=== PATIENT | female | born 1940 | race Caucasian/White ===

== ENCOUNTER 2023-04-16 12:13 | Emergency (ER) | payer MEDICARE, SELFPAY ==
[2023-04-16 12:15] VITALS: BP 133/73
--- NOTE | 2023-04-16 12:27 | ED.GENMED ---
History of Present Illness
General
Chief Complaint: Headache
Time Seen by Provider: 04/16/23 12:27
Travel History
Have you had any contact with someone who has COVID-19?: No
Do you have any symptoms of coronavirus? Fever > 100 degrees, chills, cough, shortness of breath, sore throat, loss of taste or smell, muscle aches, or headache?: No
History of Present Illness
History of Present Illness:
HPI:
EXAM:
ED COURSE:
NUMBER AND COMPLEXITY OF PROBLEMS ADDRESSED AT THE ENCOUNTER
� Chronic conditions affecting care:
� Acute Exacerbation and/or Progression of Chronic Illness:
� Differential Diagnosis includes:
AMOUNT AND/OR COMPLEXITY OF DATA TO BE REVIEWED AND ANALYZED
� I performed an independent evaluation of and my interpretation is:
EKG:
CT:
X-rays:
Laboratory Studies:
Other:
� Review of other/old records:
� Clinical information was obtained by an independent historian:
� Prescriptions/Medications Considered but not given:
� Further testing considered but not performed:
RISK OF COMPLICATIONS AND/OR MORBIDITY OR MORTALITY OF PATIENT MANAGEMENT
� Social determinants of health affecting care:
� Discussion with other providers:
� Escalation of care including admission/observation vs risk of discharge considered:
Past History
Past History
ED Past Medical History: GERD, HTN, Hypercholesterolemia and Hypothyroidism
ED Past Surgical History: Appendectomy, Gynecological (hysterectomy), Orthopedic and Other (cosmetic)
Social History
Tobacco: Non-smoker
Alcohol: None
Drug: None
Course
Vital Signs
Initial and Last Documented VS:
Initial Vital Signs
Temp Pulse Resp BP Pulse Ox
97.8 F 74 16 133/73 98
04/16/23 12:15 04/16/23 12:15 04/16/23 12:15 04/16/23 12:15 04/16/23 12:15
Last Documented Vital Signs
Temp Pulse Resp BP Pulse Ox
97.8 F 74 16 133/73 98
04/16/23 12:15 04/16/23 12:15 04/16/23 12:15 04/16/23 12:15 04/16/23 12:15
ED Attending Note
-
Portions of this chart may have been created with voice recognition software.� Occasional wrong word or��sound alike� substitutions may have occurred due to the inherent limitations of voice recognition software.
Discharge Plan
Departure
Prescriptions:
No Action
amoxicillin-pot clavulanate 875-125 mg tablet
1 tab PO BID Qty: 14 0RF
Interventions
Interventions:
*ED COVID-19 Vaccine History Last Done: 04/16/23 12:15
--- NOTE | 2023-04-16 12:29 | ED.GENMED ---
History of Present Illness
General
Chief Complaint: Headache
Time Seen by Provider: 04/16/23 12:27
Travel History
Have you had any contact with someone who has COVID-19?: No
Do you have any symptoms of coronavirus? Fever > 100 degrees, chills, cough, shortness of breath, sore throat, loss of taste or smell, muscle aches, or headache?: No
History of Present Illness
History of Present Illness:
HPI: Patient presents with a headache over the past 1 week or so. She has had migraine type of headache in her youth and also had her last headache about 10 years ago. She does not get headaches more recently except for this past week. This is
associated with some vague dizziness and sensation that there is 'a cloud between my brain and my eyes'. She also describes the initial sensation in her eyes as a migraine type of aura that she has had in the past. PMD sent her in for further
evaluation. Some of her pain is in the bitemporal regions. She has no pain with chewing food. She tells me the symptoms today are nothing like she they were 1 month ago when she was here more for right wrist pain/arthritic changes.
EXAM:
GENERAL: Well appearing in no distress
HEENT: Moist oral mucosa
CARDIOVASCULAR: No murmurs, normal heart rate and rhythm, No chest wall tenderness
PULMONARY: No respiratory distress, breath sounds are clear and equal
ABDOMEN: Soft with no peritoneal signs, no tenderness
NEUROLOGIC: Excellent strength all extremities, no coordination deficits, she has normal finger-nose testing
PSYCHIATRIC: Appropriate mental status, normal insight and judgement
EXTREMITIES: Nontender, no edema, moves all extremities equally
SKIN: No rash, no lesions
ED COURSE:
12:35 PM: I initially evaluated
NUMBER AND COMPLEXITY OF PROBLEMS ADDRESSED AT THE ENCOUNTER
� Chronic conditions affecting care: Anxiety/depression, high blood pressure, hyperlipidemia, hypothyroidism
� Acute Exacerbation and/or Progression of Chronic Illness: This is an acute problem
� Differential Diagnosis includes: Migraine type of headache, giant cell arteritis, nonspecific headache, intracranial hemorrhage, intracranial mass
AMOUNT AND/OR COMPLEXITY OF DATA TO BE REVIEWED AND ANALYZED
� I performed an independent evaluation of and my interpretation is:
EKG:
CT: CT brain unremarkable
X-rays:
Laboratory Studies: Potassium low at 2.8, CBC unremarkable, cRP is slightly high at 11.8, TSH normal, sed rate 29
Other:
� Review of other/old records: The patient was seen here in the ER on 03/13/2023, at that time the patient had a normal CBC, potassium was little bit low at 3.2, urine culture was negative. She had a CAT scan at that time of the
abdomen pelvis that showed diverticular disease.
� Clinical information was obtained by an independent historian: I spoke to her friend at bedside
� Prescriptions/Medications Considered but not given:
� Further testing considered but not performed:
RISK OF COMPLICATIONS AND/OR MORBIDITY OR MORTALITY OF PATIENT MANAGEMENT
� Social determinants of health affecting care: Lives at home
� Discussion with other providers: At 1:30 PM, received a message from Dr. Mohamud that CAT scan of the brain shows no acute abnormality
� Escalation of care including admission/observation vs risk of discharge considered: Given patient's age, CAT scan of the brain was obtained which was unremarkable for anything acute, potassium was low at 2.8 and was given
high-dose oral potassium. The patient tells me she does take HCTZ and will discuss further use of this with her primary care doctor. Her sodium is low normal at 135. She does feel significantly proved on reassessment at 2:50 PM however sed rate
is slightly elevated. Therefore, contacted vascular surgery. Dr. He will see patient in follow-up as I have very low suspicion for temporal arteritis and patient states that she did have a biopsy about 3 years ago which was unremarkable.
Past History
Past History
ED Past Medical History: GERD, HTN, Hypercholesterolemia and Hypothyroidism
ED Past Surgical History: Appendectomy, Gynecological (hysterectomy), Orthopedic and Other (cosmetic)
Social History
Tobacco: Non-smoker
Alcohol: None
Drug: None
Phy Exam
Physical Exam
Physical Exam:
See HPI
Course
Orders/Labs/Results
Orders:
Orders
04/16/23 12:38
CT Head W/o Iv Contrast Urgent
Comment:
Reason For Exam: ongoing new DAVIS 1wk
04/16/23 12:39
0.9% Sodium Chloride 500 ml [Nss] 500 ml IV BOLUS
Diphenhydramine [Benadryl] 25 mg IV NOW STA
Ketorolac [Toradol] 15 mg IV NOW STA
Metoclopramide [Reglan] 10 mg IV NOW STA
04/16/23 12:53
Basic Metabolic Panel Urgent
CRP [C-Reactive Protein] Urgent
Complete Blood Count/With Diff Urgent
ESR [Erythrocyte Sed Rate] Urgent
Magnesium Urgent
TSH Reflex To Free T4 Urgent
04/16/23 13:30
Potassium Chloride [KCl] 60 meq PO NOW STA
Abnormal Lab Results
04/16/23
12:53
ESR 29 H mm/hour
(0-20)
Potassium 2.8 L mmol/L
(3.5-5.1)
C-Reactive Protein 11.80 H mg/L
(0.0-10.00)
04/16/23 12:53
04/16/23 12:53
Vital Signs
Initial and Last Documented VS:
Initial Vital Signs
Temp Pulse Resp BP Pulse Ox
97.8 F 74 16 133/73 98
04/16/23 12:15 04/16/23 12:15 04/16/23 12:15 04/16/23 12:15 04/16/23 12:15
Last Documented Vital Signs
Temp Pulse Resp BP Pulse Ox
97.8 F 74 16 133/73 98
04/16/23 12:15 04/16/23 12:15 04/16/23 12:15 04/16/23 12:15 04/16/23 12:15
*Critical Care Note
Total Time (30-74mins, 75-104mins- exclusive of procedures): Not Applicable
ED Attending Note
-
Portions of this chart may have been created with voice recognition software.� Occasional wrong word or��sound alike� substitutions may have occurred due to the inherent limitations of voice recognition software.
Discharge Plan
Departure
Patient Disposition: Home (Routine Discharge)
Date of Disposition: 04/16/23
Time of Disposition: 15:52
Patient with high blood pressure during this ER visit?: Yes
Discharge Problem:
Headache
Instructions: Hypokalemia (DC), Migraines (DC), Headache, Adult (DC), BLOOD PRESSURE
Prescriptions:
No Action
amoxicillin-pot clavulanate 875-125 mg tablet
1 tab PO BID Qty: 14 0RF
Referrals:
NONE,* [Family Provider] -
Activity Restrictions/Additional Instructions:
Your sed rate and CRP are slightly elevated. Giant cell arteritis is a possibility however I have relatively low suspicion especially if you have at a biopsy in the past. I recommend that you still follow-up with the vascular doctor, Dr. He for
his input and reevaluation. Return here if worse. We did give you medications to commonly help migraine (Reglan and Toradol). CAT scan of the brain and other basic blood work were normal except for low potassium. You could also try increasing
foods that are high in potassium such as bananas, potatoes, tomatoes and follow-up with PMD for reassessment and repeat blood work.
Interventions
Interventions:
*Risk Screen - Suicide Last Done: 04/16/23 13:22
*General Assessment Last Done: 04/16/23 13:22
*Neglect/Abuse Screening Last Done: 04/16/23 13:22
*ED COVID-19 Vaccine History Last Done: 04/16/23 12:15
ED- Neurological Assessment Last Done: 04/16/23 13:23
[2023-04-16] MEDS: BENADRYL 25 MG IV (12:44)
[2023-04-16] MEDS: TORADOL 15 MG IV (12:44)
[2023-04-16] MEDS: REGLAN 10 MG IV (12:44)
[2023-04-16] MEDS: NSS 500 IV (12:52)
[2023-04-16 13:03] LABS: % Basophils 0.5 % (0-2); % Eosinophils 2.5 % (0-6); % Immature Granulocytes 0.3 % (0-0.5); % Lymphocytes 36.6 % (20.5-51.1); % Monocytes 7.8 % (1.7-9.3); % Neutrophils 52.3 % (42.2-75.2); Absolute Eosinophils 0.2 10^3/uL (0-0.7); Absolute Lymphocytes 2.9 10^3/uL (1.2-3.4); Absolute Monocytes 0.6 10^3/uL (0.1-0.6); Absolute Neutrophils 4.1 10^3/uL (1.4-6.5); Hematocrit 40.7 % (37.0-47.0); Hemoglobin 14.1 g/dL (12.0-16.0); Mean Corp Hgb Conc. 34.6 g/dL (33.0-37.0); Mean Corpuscular Volume 89.5 fL (81.0-99.0); Nucleated Red Blood Cells % 0 %; Platelet Count 228 10^3/uL (130-400); Red Blood Cell Count 4.55 10^6/uL (4.20-5.40); Red Cell Dist. Width 12.4 % (11.5-14.5); White Blood Cell Count 7.9 10^3/uL (4.8-10.8)
[2023-04-16 13:23] LABS: Blood Urea Nitrogen 15 mg/dl (7-17); Calcium 9.2 mg/dl (8.4-10.2); Carbon Dioxide 27 mmol/L (22-30); Chloride 102 mmol/L (98-107); Glucose 87 mg/dl (70-99); Magnesium 1.7 mg/dl (1.6-2.3); Potassium 2.8 mmol/L (3.5-5.1); Sodium 135 mmol/L (135-145); eGFR > 60.00
[2023-04-16 13:52] LABS: TSH Reflex To Free T4 1.01 uIU/ml (0.47-4.68)
[2023-04-16 14:09] LABS: Erythrocyte Sed Rate 29 mm/hour (0-20)
[2023-04-16] MEDS: KCL 60 MEQ PO (14:25)
== END 2023-04-16 16:38 | disposition home or self-care (01) ==
LOC: EMR 12:13
PROVIDERS: EMERGENCY PHYSICIAN Emergency Medicine
DX: R51.9 Headache, unspecified (principal); R42 Dizziness and giddiness; F41.9 Anxiety disorder, unspecified; F32.A Depression, unspecified; E78.00 Pure hypercholesterolemia, unspecified; E03.9 Hypothyroidism, unspecified; I10 Essential (primary) hypertension; K21.9 Gastro-esophageal reflux disease without esophagitis; Z90.49 Acquired absence of other specified parts of digestive tract; Z90.710 Acquired absence of both cervix and uterus
CPT/HCPCS: 99284; 96374; 96375; 96361; 70450; 80048; 83735; 84443; 85025; 85652; 86140

== ENCOUNTER 2023-05-04 08:15 | Day surgery (SDC) | payer MEDICARE, SELFPAY ==
[2023-05-04] VITALS (9 sets, daily range): BP systolic 113–155; BP diastolic 57–90; BMI 28.1
[2023-05-04] MEDS: BACTROBAN NASAL 1 GRAM NASAL (08:54)
[2023-05-04] MEDS: PERIDEX 0.12% ORAL RINSE 15 ML PO (08:54)
[2023-05-04 09:28] LABS: Blood Urea Nitrogen 21 mg/dl (7-17); Calcium 8.9 mg/dl (8.4-10.2); Carbon Dioxide 26 mmol/L (22-30); Chloride 106 mmol/L (98-107); Estimated Creatinine Clearance 37 ml/min; Glucose 81 mg/dl (70-99); Potassium 3.7 mmol/L (3.5-5.1); Sodium 135 mmol/L (135-145); eGFR 56.25
--- NOTE | 2023-05-04 11:12 | W.SUR.PREOP ---
Pre-Operative Surgical Note
-
I have examined this patient prior to the performance of the scheduled procedure.
The patient's condition is unchanged from the time of the current History and
Physical and the patient is able to undergo the scheduled procedure.
[2023-05-04] MEDS: NSS 500 IV (12:50)
--- NOTE | 2023-05-04 14:37 | W.IMMPOSTOP ---
Surgical Immed Post Op Note
-
Primary Surgeon: Michael He III, MD
Assisting Surgeon: Patrick Osullivan MD
Pre-op Diagnosis: R/O Giant Cell Arteritis
Procedure Performed: Redo bilateral temporal artery biopsy
Anesthesia Type: Light Sedation
Specimen / Cultures: 2x 5cm segments of temporal artery
Estimated Blood Loss: 5cc
Complications: NA
Operative Findings:
Segments from both temporal arteries exceeding 5cm on both sides were excised without complication and send to pathology. Overlying subcutaneous tissue and skin were closed.
--- NOTE | 2023-05-04 15:21 | OR.RPT ---
Operative Report
Operative Report
Date of Operation: 05/04/2023
Pre Op Diagnosis:
1.) Bilateral headaches
2.) Elevated inflammatory markers
3.) Suspected temporal arteritis
Post Op Diagnosis:
1.) Bilateral headaches
2.) Elevated inflammatory markers
3.) Suspected temporal arteritis
Procedure: BILATERAL temporal artery biopsies
Surgeon: Michael He III, MD
Bilingual Sales Representative: Patrick Osullivan MD PGY-1
Anesthesia: Sedation/local
Complications: None
Estimated Blood Loss: Minimal
History and Indications for Procedure: 82-year-old female with symptom constellation concerning for temporal arteritis. We were asked to provide temporal artery biopsies.
Procedure in Detail: Briana Nolasco was correctly identified and placed supine on the operating table. After adequate induction of anesthesia the hair overlying the bilateral temporal regions was shaved. The temporal pulses were palpated
bilaterally and appropriate skin incisions were marked over the temporal pulses bilaterally. The bilateral temporal regions were then prepped and draped in the usual sterile fashion. The patient received preoperative antibiotics. A time out
procedure was performed with the nursing and anesthesia staff confirming the patient's identity as well as the nature and laterality of the procedure.
Bilateral temporal artery biopsies were performed one at a time in the same manner as follows: Local anesthesia was infiltrated into the skin and subcutaneous tissue at the skin lia. A skin incision was made over the temporal skin lia.
Electrocautery and sharp dissection were used to expose the temporal artery. After adequate length of temporal artery had been exposed within the wound bed the proximal and distal ends were ligated with silk ties and small metal clips. The
intervening artery segment was transected proximally and distally and removed. The artery segment was identified according to laterality and passed off to the back table to be labeled and sent to pathology. The wound was then closely inspected for
hemostasis which was achieved. The wound was irrigated with saline solution.
Each wound was closed in layers. Skin glue was applied to each incision bilaterally.
The patient tolerated the procedure well and was taken to the recovery room in good condition.
Signed:
Michael He III, MD
[facility]
[phone] (xymn)
== END 2023-05-04 14:10 | disposition home or self-care (01) ==
LOC: CATH 08:15
PROVIDERS: ATTENDING PHYSICIAN Surgery Vascular Surgery; FAMILY PHYSICIAN Nurse Practitioner; OTHER PHYSICIAN Internal Medicine Cardiovascular Disease
DX: R51.9 Headache, unspecified (principal); Z79.82 Long term (current) use of aspirin; I10 Essential (primary) hypertension; E78.00 Pure hypercholesterolemia, unspecified; K21.9 Gastro-esophageal reflux disease without esophagitis; Z87.891 Personal history of nicotine dependence; R79.82 Elevated C-reactive protein (CRP)
CPT/HCPCS: 37609; 88305; 80048; 88313

== ENCOUNTER → 2023-05-20 08:16 | Outpatient (REF) | payer MEDICARE, SELFPAY | LOC: MRI 08:16 | PROVIDERS: ATTENDING PHYSICIAN Specialist; FAMILY PHYSICIAN Nurse Practitioner | DX: R51.9 Headache, unspecified (principal); H53.8 Other visual disturbances | CPT/HCPCS: 70553; A9575 ==

== ENCOUNTER → 2023-06-26 09:31 | Outpatient (REF) | payer MEDICARE, SELFPAY | LOC: PAVMRI 09:31 | PROVIDERS: ATTENDING PHYSICIAN Specialist; FAMILY PHYSICIAN Nurse Practitioner | DX: I67.6 Nonpyogenic thrombosis of intracranial venous system (principal); R42 Dizziness and giddiness | CPT/HCPCS: 70546; A9585 ==

== ENCOUNTER 2023-07-23 19:26 | Emergency (ER) | payer MEDICARE, SELFPAY ==
[2023-07-23 19:32] VITALS: BP 172/91
[2023-07-23 20:01] LABS: % Basophils 0.2 % (0-2); % Eosinophils 0.4 % (0-6); % Immature Granulocytes 0.3 % (0-0.5); % Lymphocytes 10.4 % (20.5-51.1); % Monocytes 5.5 % (1.7-9.3); % Neutrophils 83.2 % (42.2-75.2); Absolute Eosinophils 0.1 10^3/uL (0-0.7); Absolute Lymphocytes 1.2 10^3/uL (1.2-3.4); Absolute Monocytes 0.6 10^3/uL (0.1-0.6); Absolute Neutrophils 9.6 10^3/uL (1.4-6.5); Hematocrit 40.1 % (37.0-47.0); Hemoglobin 13.4 g/dL (12.0-16.0); Mean Corp Hgb Conc. 33.4 g/dL (33.0-37.0); Mean Corpuscular Hgb 30.3 pg (27.0-31.0); Mean Corpuscular Volume 90.7 fL (81.0-99.0); Mean Platelet Volume 9.7 fL (7.4-10.4); Nucleated Red Blood Cells % 0 %; Platelet Count 206 10^3/uL (130-400); Red Blood Cell Count 4.42 10^6/uL (4.20-5.40); Red Cell Dist. Width 12.5 % (11.5-14.5); White Blood Cell Count 11.5 10^3/uL (4.8-10.8)
[2023-07-23 20:10] LABS: Lactic Acid 1.3 mmol/L (0.7-2.0)
[2023-07-23 20:11] LABS: ALT (SGPT) 14 U/L (0-35); AST (SGOT) 28 U/L (14-36); Albumin 4.2 g/dl (3.5-5.0); Alkaline Phosphatase 95 U/L (38-126); Blood Urea Nitrogen 12 mg/dl (7-17); Calcium 9.6 mg/dl (8.4-10.2); Carbon Dioxide 24 mmol/L (22-30); Chloride 105 mmol/L (98-107); Glucose 111 mg/dl (70-99); Potassium 3.8 mmol/L (3.5-5.1); Sodium 138 mmol/L (135-145); Total Bilirubin 0.5 mg/dl (0.2-1.3); Total Protein 6.9 g/dl (6.3-8.2); eGFR > 60.00
== END 2023-07-23 23:53 ==
LOC: EMR 19:26
PROVIDERS: Emergency Medicine
DX: R50.9 Fever, unspecified (principal); Z98.890 Other specified postprocedural states; Z53.21 Procedure and treatment not carried out due to patient leaving prior to being seen by health care provider
CPT/HCPCS: 99281; 80053; 83605; 85025; 87040

== ENCOUNTER → 2023-10-26 11:48 | Outpatient (REF) | payer MEDICARE, SELFPAY | LOC: HWRAD 11:48 | PROVIDERS: ATTENDING PHYSICIAN Nurse Practitioner | DX: R05.1 Acute cough (principal) | CPT/HCPCS: 71046 ==

== ENCOUNTER → 2023-12-11 12:26 | Outpatient (REF) | payer MEDICARE, SELFPAY ==
[2023-12-11 13:11] LABS: % Basophils 0.6 % (0-2); % Immature Granulocytes 0.1 % (0-0.5); % Lymphocytes 35.1 % (20.5-51.1); % Monocytes 7.8 % (1.7-9.3); % Neutrophils 54.4 % (42.2-75.2); Absolute Basophils 0.1 10^3/uL (0-0.2); Absolute Eosinophils 0.2 10^3/uL (0-0.7); Absolute Lymphocytes 2.8 10^3/uL (1.2-3.4); Absolute Monocytes 0.6 10^3/uL (0.1-0.6); Absolute Neutrophils 4.3 10^3/uL (1.4-6.5); Hemoglobin 13.8 g/dL (12.0-16.0); Mean Corp Hgb Conc. 33.7 g/dL (33.0-37.0); Mean Corpuscular Hgb 29.4 pg (27.0-31.0); Mean Corpuscular Volume 87.4 fL (81.0-99.0); Mean Platelet Volume 9.4 fL (7.4-10.4); Nucleated Red Blood Cells % 0 %; Platelet Count 260 10^3/uL (130-400); Red Blood Cell Count 4.69 10^6/uL (4.20-5.40); Red Cell Dist. Width 12.8 % (11.5-14.5); White Blood Cell Count 7.8 10^3/uL (4.8-10.8)
[2023-12-11 13:30] LABS: ALT (SGPT) 20 U/L (0-35); AST (SGOT) 26 U/L (14-36); Albumin 4.4 g/dl (3.5-5.0); Alkaline Phosphatase 103 U/L (38-126); Blood Urea Nitrogen 17 mg/dl (7-17); Calcium 9.7 mg/dl (8.4-10.2); Carbon Dioxide 25 mmol/L (22-30); Chloride 106 mmol/L (98-107); Glucose 85 mg/dl (70-99); Potassium 4.4 mmol/L (3.5-5.1); Sodium 144 mmol/L (135-145); Total Bilirubin 0.2 mg/dl (0.2-1.3); Total Protein 7.2 g/dl (6.3-8.2); eGFR > 60.00
== END ==
LOC: HWRAD 12:26
PROVIDERS: ATTENDING PHYSICIAN Physician Assistant Medical
DX: R10.32 Left lower quadrant pain (principal); Z11.52 Encounter for screening for COVID-19; R11.2 Nausea with vomiting, unspecified
CPT/HCPCS: 36415; 74178; 80053; 85025; Q9967

== ENCOUNTER → 2024-01-18 11:51 | Outpatient (REF) | payer MEDICARE, SELFPAY | LOC: RAD 11:51 | PROVIDERS: ATTENDING PHYSICIAN Internal Medicine; FAMILY PHYSICIAN Nurse Practitioner | DX: K59.00 Constipation, unspecified (principal); Z87.19 Personal history of other diseases of the digestive system | CPT/HCPCS: 74177; Q9967 ==

== ENCOUNTER 2024-01-24 16:32 | Emergency (ER) | payer MEDICARE, SELFPAY ==
[2024-01-24 16:33] VITALS: BP 125/92
--- NOTE | 2024-01-24 17:34 | ED.GENMED ---
History of Present Illness
General
Chief Complaint: Abdominal Pain
Source: patient
Exam Limitations: none
Time Seen by Provider: 01/24/24 17:07
Nursing documentation reviewed up to this point in time: agreed with
History of Present Illness
History of Present Illness:
83-year-old female past medical history of diverticulitis, GERD hypertension hyperlipidemia presenting to the emergency department with worsening left lower quadrant Mateo pain ongoing for 2 weeks but worsening over the past few days. Also
noticed nausea vomiting and subjective fever over the past day or so. She had previous CT scan a week ago that showed proctocolitis no specific treatment the porter baggage.
Past History
Past History
ED Past Medical History: GERD, HTN, Hypercholesterolemia and Hypothyroidism
ED Past Surgical History: Appendectomy, Gynecological (hysterectomy), Orthopedic and Other (cosmetic)
Social History
Tobacco: Non-smoker
Alcohol: None
Drug: None
Review of Systems
Review of Systems
Allergies reviewed?: Yes
All Other Systems: ROS reviewed and negative except as documented in HPI and ROS
Phy Exam
Physical Exam
Physical Exam:
GENERAL: Alert , in no apparent distress
EYE: pupils equal and reactive
NECK: Supple, no significant adenopathy.
ENT: o/p clr, mmm.
CARDIAC: Regular rate and rhythm .
LUNGS: Clear breath sounds bilaterally, no acute respiratory distress, no wheezes/rales/rhonchi
ABDOMEN: Discomfort throughout the lower abdomen to palpation maximal to the left lower quadrant soft benign upper abdomen
NEUROLOGICAL: Alert and oriented, no focal neuro deficits
SKIN: Warm and dry, skin intact.
MUSCULOSKELETAL: No edema, well perfused.
PSYCH: Normal and appropriate interaction.
Course
Orders/Labs/Results
Orders:
Orders
01/24/24 17:26
CT Abd/Pel (IV only)-DH only Urgent
Comment:
Reason For Exam: left sided abd pain
Urinalysis Reflex To Culture Urgent
Ketorolac [Toradol] 15 mg IV NOW STA
Ondansetron Injectable [Zofran] 4 mg IV NOW STA
01/24/24 17:40
CBC/With Diff [Complete Blood Count/With Diff] Urgent
CMP [Comprehensive Metabolic Panel] Urgent
01/24/24 19:08
Amoxicillin 875 mg/Clav 125 mg [Augmentin 875 mg/125 mg] 1 tablet PO NOW STA
Abnormal Lab Results
01/24/24
17:40
Absolute Monos (auto) 0.7 H 10^3/uL
(0.1-0.6)
01/24/24 17:40
01/24/24 17:40
Vital Signs
Initial and Last Documented VS:
Initial Vital Signs
Temp Pulse Resp BP Pulse Ox
98.0 F 64 18 125/92 96
01/24/24 16:33 01/24/24 16:33 01/24/24 16:33 01/24/24 16:33 01/24/24 16:33
Last Documented Vital Signs
Temp Pulse Resp BP Pulse Ox
98.0 F 64 18 125/92 96
01/24/24 16:33 01/24/24 16:33 01/24/24 16:33 01/24/24 16:33 01/24/24 16:33
MDM/Problems Addressed
MDM/Problems Addressed:
83-year-old female presenting to the emergency department today with concerns of ongoing worsening lower abdominal pain mainly to the left lower quadrant. Worsening over the past day or so with now associated nausea and an episode of vomiting.
Also had subjective fevers. Upon arrival vital signs are normal. Patient does have reproducible tenderness throughout the lower abdomen maximal to the left lower quadrant. CT scan showing diverticulitis. Patient stable for outpatient treatment
as there is no signs of complication. Return precautions given advised for close outpatient follow-up.
*Critical Care Note
Total Time (30-74mins, 75-104mins- exclusive of procedures): Not Applicable
ED Attending Note
-
Portions of this chart may have been created with voice recognition software.� Occasional wrong word or��sound alike� substitutions may have occurred due to the inherent limitations of voice recognition software.
Discharge Plan
Departure
Patient Disposition: Home (Routine Discharge)
Date of Disposition: 01/24/24
Time of Disposition: 19:09
Patient with high blood pressure during this ER visit?: No
Condition: Good
Covid-19: Not Applicable
Discharge Problem:
Diverticulitis
Instructions: Diverticulitis (DC)
Prescriptions:
New
amoxicillin-pot clavulanate 875-125 mg tablet
1 tab PO BID 7 Days Qty: 14 0RF
ibuprofen 600 mg tablet
600 mg PO Q8H PRN (Reason: Pain) Qty: 14 0RF
No Action
losartan 50 mg Tablet
50 mg PO DAILY
meloxicam 15 mg Tablet
15 mg PO DAILY PRN (Reason: arthritis)
famotidine 40 mg Tablet
40 mg PO DAILY PRN (Reason: acid)
prednisone 20 mg Tablet
60 mg PO DAILY
amlodipine 2.5 mg Tablet
2.5 mg PO DAILY
pantoprazole 40 mg Tablet,Delayed Release (Dr/Ec)
40 mg PO DAILY PRN (Reason: acid)
aspirin 81 mg Tablet
81 mg PO DAILY
coenzyme Q10 [CoQ-10] 100 mg Capsule
200 mg PO DAILY
rosuvastatin [Crestor] 20 mg Tablet
20 mg PO HS
cholecalciferol (vitamin D3) [Vitamin D3] 50 mcg (2,000 unit) Tablet
50 mcg PO DAILY
Vitamin B12 1,000 mcg tablet
1 tab PO DAILY
levothyroxine capsule
50 mcg PO DAILY
Rx Instructions:
patient can not remember dosage
Citalopram capsule
20 mg PO DAILY
Rx Instructions:
patient unsure of dosage
oxycodone 5 mg tablet
5 mg PO Q8H PRN (Reason: moderate pain) Qty: 5 0RF
Referrals:
Michael Gonzalez MD [Primary Care Provider] -
Activity Restrictions/Additional Instructions:
You came to the emergency department today with concerns of left lower quadrant abdominal pain. You are found to have sigmoid diverticulitis. Please take Augmentin twice daily for the next 7 days as well as ibuprofen 600 milligrams every 8 hours
to help with inflammation and discomfort. Please start with a liquid diet and progress this over the next few days as symptoms will hopefully be improving. He can follow-up closely with the primary care doctor. Return to the emergency department
for any worsening, new or concerning symptoms.
Interventions
Interventions:
*Risk Screen - Suicide Last Done: 01/24/24 16:33
*General Assessment Last Done: 01/24/24 17:36
*Neglect/Abuse Screening Last Done: 01/24/24 17:36
ED- Fall Risk Assessment Last Done: 01/24/24 17:36
*ED COVID-19 Vaccine History Last Done: 01/24/24 17:36
CD-Ekiigf-Alzudjyosr Assessment Last Done: 01/24/24 17:36
Discharge Date and Time
Print Language: ANGUILLAN
[2024-01-24 17:36] VITALS: BMI 29.5
[2024-01-24 17:37] VITALS: BP 152/76
[2024-01-24] MEDS: ZOFRAN 4 MG IV (17:38)
[2024-01-24] MEDS: TORADOL 15 MG IV (17:38)
[2024-01-24 17:53] LABS: % Basophils 0.4 % (0-2); % Eosinophils 0.9 % (0-6); % Immature Granulocytes 0.4 % (0-0.5); % Lymphocytes 35.2 % (20.5-51.1); % Monocytes 8.6 % (1.7-9.3); % Neutrophils 54.5 % (42.2-75.2); Absolute Eosinophils 0.1 10^3/uL (0-0.7); Absolute Lymphocytes 2.7 10^3/uL (1.2-3.4); Absolute Monocytes 0.7 10^3/uL (0.1-0.6); Absolute Neutrophils 4.1 10^3/uL (1.4-6.5); Hematocrit 39.9 % (37.0-47.0); Hemoglobin 13.8 g/dL (12.0-16.0); Mean Corp Hgb Conc. 34.6 g/dL (33.0-37.0); Mean Corpuscular Hgb 30.5 pg (27.0-31.0); Mean Corpuscular Volume 88.1 fL (81.0-99.0); Mean Platelet Volume 9.3 fL (7.4-10.4); Nucleated Red Blood Cells % 0 %; Platelet Count 222 10^3/uL (130-400); Red Blood Cell Count 4.53 10^6/uL (4.20-5.40); Red Cell Dist. Width 12.9 % (11.5-14.5); White Blood Cell Count 7.5 10^3/uL (4.8-10.8)
[2024-01-24 18:00] VITALS: BP 127/84
[2024-01-24 18:07] LABS: ALT (SGPT) 14 U/L (0-35); AST (SGOT) 23 U/L (14-36); Albumin 4.5 g/dl (3.5-5.0); Alkaline Phosphatase 108 U/L (38-126); Blood Urea Nitrogen 12 mg/dl (7-17); Calcium 9.6 mg/dl (8.4-10.2); Carbon Dioxide 22 mmol/L (22-30); Chloride 105 mmol/L (98-107); Estimated Creatinine Clearance 46 ml/min; Glucose 87 mg/dl (70-99); Potassium 3.9 mmol/L (3.5-5.1); Sodium 139 mmol/L (135-145); Total Bilirubin 0.6 mg/dl (0.2-1.3); Total Protein 7.2 g/dl (6.3-8.2); eGFR > 60.00
[2024-01-24 19:00] VITALS: BP 128/90
[2024-01-24] MEDS: AUGMENTIN 875 MG/125 MG 1 TABLET PO (19:16)
== END 2024-01-24 19:30 | disposition home or self-care (01) ==
LOC: EMR 16:32
PROVIDERS: Physician Assistant; EMERGENCY PHYSICIAN Emergency Medicine; FAMILY PHYSICIAN Nurse Practitioner; PRIMARYCARE PHYSICIAN Family Medicine
DX: K57.32 Diverticulitis of large intestine without perforation or abscess without bleeding (principal); E03.9 Hypothyroidism, unspecified; E78.00 Pure hypercholesterolemia, unspecified; I10 Essential (primary) hypertension; K21.9 Gastro-esophageal reflux disease without esophagitis; Z90.49 Acquired absence of other specified parts of digestive tract; Z90.710 Acquired absence of both cervix and uterus
CPT/HCPCS: 96374; 96375; 99284; 74177; 80053; 85025; Q9967

== ENCOUNTER 2024-01-26 13:09 | Emergency (ER) | payer MEDICARE, SELFPAY ==
[2024-01-26 13:18] VITALS: BP 125/71
--- NOTE | 2024-01-26 13:36 | ED.GENMED ---
History of Present Illness
<Denise Mello PA-C - Last Filed: 01/26/24 21:06>
General
Chief Complaint: Abdominal Pain
Source: patient
Exam Limitations: none
Time Seen by Provider: 01/26/24 13:34
Nursing documentation reviewed up to this point in time: agreed with
History of Present Illness
History of Present Illness:
83-year-old female with past medical history of diverticulitis, hypertension, hyperlipidemia presents to the emergency department today with concerns of left lower quadrant pain for the past 2 weeks. Patient was seen in our emergency department 2
days ago for this issue and had a CT scan done which showed mild diverticulitis. Patient was started on Augmentin and has had around 4 doses of this. She has been taking ibuprofen for pain but feels as her pain is gotten worse and now patient has
nausea, decreased appetite, and noted a low-grade fever rectally of 100. She denies flank pain dysuria, hematuria. Denies diarrhea. She follows with [facility]. She has past abdominal surgical history of appendectomy, hysterectomy,
pelvic sling.
Past History
<Denise Mello PA-C - Last Filed: 01/26/24 21:06>
Past History
ED Past Medical History: GERD, HTN, Hypercholesterolemia and Hypothyroidism
ED Past Surgical History: Appendectomy, Gynecological (hysterectomy), Orthopedic and Other (cosmetic)
Social History
Tobacco: Non-smoker
Alcohol: None
Drug: None
Review of Systems
<Denise Mello PA-C - Last Filed: 01/26/24 21:06>
Review of Systems
All Other Systems: ROS reviewed and negative except as documented in HPI and ROS
Phy Exam
<Denise Mello PA-C - Last Filed: 01/26/24 21:06>
Physical Exam
Physical Exam:
General: Patient is well appearing and in no acute distress; non-toxic
Skin: Warm and dry, no rashes or lesions
Head: Normocephalic, atraumatic
Eyes: Sclera non-icteric. EOMs intact. PERRLA.
Cardiac: Regular rate and rhythm
Peripheral Vascular: No lower extremity swelling or edema
Pulm: Normal respiratory effort, no wheezes, rales, or rhonchi
Abdomen: LLQ tenderness to palpation noted with guarding, no rebound tenderness, no palpable abdominal masses
Neuro: CN II-XII intact, no focal neurologic deficits.
Psychiatric: Appropriate mood and affect.
Course
<Denise Mello PA-C - Last Filed: 01/26/24 21:06>
Orders/Labs/Results
Orders:
Orders
01/26/24 13:54
CT Abd/pelvis W Iv Cont Urgent
Comment:
Reason For Exam: LLQ pain
01/26/24 13:58
Complete Blood Count/With Diff Urgent
Comprehensive Metabolic Panel Urgent
Lipase Urgent
01/26/24 14:14
Ketorolac [Toradol] 15 mg IV NOW STA
Ondansetron Injectable [Zofran] 4 mg IV NOW STA
Abnormal Lab Results
01/26/24
13:58
Carbon Dioxide 21 L mmol/L
(22-30)
01/26/24 13:58
01/26/24 13:58
Vital Signs
Initial and Last Documented VS:
Initial Vital Signs
Temp Pulse Resp BP Pulse Ox
97.6 F 66 16 125/71 95
01/26/24 13:18 01/26/24 13:18 01/26/24 13:18 01/26/24 13:18 01/26/24 13:18
Last Documented Vital Signs
Temp Pulse Resp BP Pulse Ox
97.6 F 64 17 124/74 98
01/26/24 13:18 01/26/24 17:45 01/26/24 17:45 01/26/24 17:45 01/26/24 17:45
<Savi Jimenes DO - Last Filed: 01/26/24 14:24>
Orders/Labs/Results
Orders:
Orders
01/26/24 13:54
CT Abd/pelvis W Iv Cont Urgent
Comment:
Reason For Exam: LLQ pain
01/26/24 13:58
Complete Blood Count/With Diff Urgent
Comprehensive Metabolic Panel Urgent
Lipase Urgent
01/26/24 14:14
Ketorolac [Toradol] 15 mg IV NOW STA
Ondansetron Injectable [Zofran] 4 mg IV NOW STA
Abnormal Lab Results
01/26/24
13:58
Carbon Dioxide 21 L mmol/L
(30)
01/26/24 13:58
01/26/24 13:58
Vital Signs
Initial and Last Documented VS:
Initial Vital Signs
Temp Pulse Resp BP Pulse Ox
97.6 F 66 16 125/71 95
01/26/24 13:18 01/26/24 13:18 01/26/24 13:18 01/26/24 13:18 01/26/24 13:18
Last Documented Vital Signs
Temp Pulse Resp BP Pulse Ox
97.6 F 64 17 124/74 98
01/26/24 13:18 01/26/24 17:45 01/26/24 17:45 01/26/24 17:45 01/26/24 17:45
<Denise Mello PA-C - Last Filed: 01/26/24 21:06>
MDM/Problems Addressed
Differential Diagnosis Includes:
ddx include worsening diverticulitis, intraabdominal abscess, perforated viscous, bowel obstruction
MDM/Problems Addressed:
83-year-old female with past medical history of diverticulitis, hypertension presents emergency department today with concerns of persistent left lower quadrant pain following her diagnosis of diverticulitis 2 days ago. Patient was started on
Augmentin and she has had around 4 doses of this. Patient notes that her symptoms have worsened, she now has nausea and decreased appetite as well as a low-grade fever of 100 F. Patient denies any dysuria or hematuria. Patient denies any flank
pain. Will send patient for CAT scan to assess for intra-abdominal abscess, or possible bowel perforation. Patient is afebrile here in the emergency department.
Reassessment, patient's pain has improved with Toradol. CAT scan reveals persistent mild stranding along the sigmoid colon likely secondary to persist did not mild sigmoid diverticulitis. But no evidence of intra-abdominal abscess or perforation.
Considering patient's persistent symptoms, did offer switching antibiotics to Cipro and Flagyl however patient is allergic to these. Patient prefers to remain on Augmentin, I think this is reasonable, did offer Percocets for better pain control.
Discussed return precautions. Patient stable for discharge.
Chronic conditions affecting care:
Hypertension, hyperlipidemia, diabetes, endometriosis
<Denise Mello PA-C - Last Filed: 01/26/24 21:06>
*Pulse Oximetry
Patient hypoxic: no
*Critical Care Note
Total Time (30-74mins, 75-104mins- exclusive of procedures): Not Applicable
Data Reviewed
Review of Other/Old Records Reveals: Records (Reviewed ER physician documentation from 01/24/2024, patient seen for diverticulitis, CT scan scan showed mild diverticulitis, patient sent home on amoxicillin.)
Source: patient and records
<Denise Mello PA-C - Last Filed: 01/26/24 21:06>
Patient Management
Escalation/DeEscalation of care consider admission/obs:
Admit not indicated, patient stable for discharge, case reviewed with my attending
ED Attending Note
<Denise Mello PA-C - Last Filed: 01/26/24 21:06>
-
Portions of this chart may have been created with voice recognition software.� Occasional wrong word or��sound alike� substitutions may have occurred due to the inherent limitations of voice recognition software.
<Savi Jimenes DO - Last Filed: 01/26/24 14:24>
ED Attending Note
Patient seen and examined by attending physician: Yes
I performed the substantive portion of visit, reviewed & personally made and approve the management plan that is documented in note by myself or TUTU.: Yes
I performed a history and physical exam of patient and discussed management with resident, I reviewed resident's note and agree with documented findings and plan of care.: Yes
ED Attending Note:
Patient seen and evaluated at bedside, 83-year-old female with prior history of diverticulitis presenting for worsening left lower quadrant abdominal pain. Patient reports pain for the past several days. Patient seen in the emergency department on
01/23, had CT imaging that showed mild sigmoid diverticulitis. Patient was started on Augmentin, however notes that her pain is worsening and is not having any improvement. Also notes that she had a low-grade fever prior to arrival. Reports
several episodes diverticulitis in the past, however never required admission. Patient remains to the left lower quadrant of the abdomen. She reports constipation. Vital signs on arrival are normal.
On exam, patient is resting comfortably, no acute distress. Overall reassuring examination of the abdomen, without significant distention, mild tenderness to the left lower quadrant without rebound or guarding. Lower suspicion for bowel
perforation, however given acute worsening of symptoms with known diverticulitis, cannot safely rule out developing abscess. For this reason plan for repeat CT imaging. Toradol administered for pain.
Discharge Plan
Departure
Patient Disposition: Home (Routine Discharge)
Date of Disposition: 01/26/24
Time of Disposition: 17:40
Patient with high blood pressure during this ER visit?: No
Condition: Good
Discharge Problem:
Diverticulitis
Instructions: Diverticulitis (DC), Abdominal Pain
Prescriptions:
New
oxycodone-acetaminophen [Percocet] 5-325 mg tablet
1 tab PO Q6HPRN PRN (Reason: pain) Qty: 8 0RF
No Action
losartan 50 mg Tablet
50 mg PO DAILY
meloxicam 15 mg Tablet
15 mg PO DAILY PRN (Reason: arthritis)
famotidine 40 mg Tablet
40 mg PO DAILY PRN (Reason: acid)
prednisone 20 mg Tablet
60 mg PO DAILY
amlodipine 2.5 mg Tablet
2.5 mg PO DAILY
pantoprazole 40 mg Tablet,Delayed Release (Dr/Ec)
40 mg PO DAILY PRN (Reason: acid)
aspirin 81 mg Tablet
81 mg PO DAILY
coenzyme Q10 [CoQ-10] 100 mg Capsule
200 mg PO DAILY
rosuvastatin [Crestor] 20 mg Tablet
20 mg PO HS
cholecalciferol (vitamin D3) [Vitamin D3] 50 mcg (2,000 unit) Tablet
50 mcg PO DAILY
Vitamin B12 1,000 mcg tablet
1 tab PO DAILY
levothyroxine capsule
50 mcg PO DAILY
Rx Instructions:
patient can not remember dosage
Citalopram capsule
20 mg PO DAILY
Rx Instructions:
patient unsure of dosage
oxycodone 5 mg tablet
5 mg PO Q8H PRN (Reason: moderate pain) Qty: 5 0RF
amoxicillin-pot clavulanate 875-125 mg tablet
1 tab PO BID 7 Days Qty: 14 0RF
ibuprofen 600 mg tablet
600 mg PO Q8H PRN (Reason: Pain) Qty: 14 0RF
Referrals:
Theresa Snider CRNP [Family Provider] -
Activity Restrictions/Additional Instructions:
Please finish your course of Augmentin.
Please follow-up with GI as scheduled next week.
Percocet has been sent to your pharmacy. You can take one tablet every 6 hours as needed for pain. You can alternate this with Ibuprofen.
Please return to emergency department should you develop any acute worsening of your symptoms, intractable nausea or vomiting, rectal bleeding, vomiting of blood, dark tarry stools, chest pain, shortness of breath, or any other worrisome signs or
symptoms to you.
Interventions
Interventions:
*Risk Screen - Suicide Last Done: 01/26/24 13:21
*Neglect/Abuse Screening Last Done: 01/26/24 13:21
*Nursing Disposition Last Done: 01/26/24 18:11
BD-Tojyxy-Lksobnbtxs Assessment Last Done: 01/26/24 14:25
Discharge Date and Time
Discharge Date/Time: 01/26/24 18:11
Print Language: SPANISH
[2024-01-26 14:12] LABS: % Basophils 0.6 % (0-2); % Eosinophils 1.9 % (0-6); % Immature Granulocytes 0.4 % (0-0.5); % Lymphocytes 28.3 % (20.5-51.1); % Monocytes 7.9 % (1.7-9.3); % Neutrophils 60.9 % (42.2-75.2); Absolute Eosinophils 0.1 10^3/uL (0-0.7); Absolute Lymphocytes 2.1 10^3/uL (1.2-3.4); Absolute Monocytes 0.6 10^3/uL (0.1-0.6); Absolute Neutrophils 4.4 10^3/uL (1.4-6.5); Hematocrit 39.9 % (37.0-47.0); Hemoglobin 13.6 g/dL (12.0-16.0); Mean Corp Hgb Conc. 34.1 g/dL (33.0-37.0); Mean Corpuscular Hgb 30.2 pg (27.0-31.0); Mean Corpuscular Volume 88.7 fL (81.0-99.0); Mean Platelet Volume 9.6 fL (7.4-10.4); Nucleated Red Blood Cells % 0 %; Platelet Count 236 10^3/uL (130-400); Red Cell Dist. Width 12.7 % (11.5-14.5); White Blood Cell Count 7.2 10^3/uL (4.8-10.8)
[2024-01-26 14:23] LABS: ALT (SGPT) 19 U/L (0-35); AST (SGOT) 30 U/L (14-36); Albumin 4.4 g/dl (3.5-5.0); Alkaline Phosphatase 114 U/L (38-126); Blood Urea Nitrogen 13 mg/dl (7-17); Calcium 9.7 mg/dl (8.4-10.2); Carbon Dioxide 21 mmol/L (22-30); Chloride 104 mmol/L (98-107); Glucose 86 mg/dl (70-99); Lipase 116 U/L (23-300); Potassium 4.3 mmol/L (3.5-5.1); Sodium 137 mmol/L (135-145); Total Bilirubin 0.7 mg/dl (0.2-1.3); Total Protein 7.2 g/dl (6.3-8.2); eGFR > 60.00
[2024-01-26] MEDS: TORADOL 15 MG IV (14:27)
[2024-01-26] MEDS: ZOFRAN 4 MG IV (14:27)
[2024-01-26 17:45] VITALS: BP 124/74
== END 2024-01-26 18:11 | disposition home or self-care (01) ==
LOC: EMR 13:09
PROVIDERS: Physician Assistant; EMERGENCY PHYSICIAN Student in an Organized Health Care Education/Training Program; FAMILY PHYSICIAN Nurse Practitioner
DX: K57.32 Diverticulitis of large intestine without perforation or abscess without bleeding (principal); I10 Essential (primary) hypertension; E78.00 Pure hypercholesterolemia, unspecified; E11.9 Type 2 diabetes mellitus without complications; E03.9 Hypothyroidism, unspecified; K21.9 Gastro-esophageal reflux disease without esophagitis; Z90.49 Acquired absence of other specified parts of digestive tract; Z90.710 Acquired absence of both cervix and uterus
CPT/HCPCS: 99284; 96374; 96375; 74177; 80053; 83690; 85025; Q9967

== ENCOUNTER → 2024-02-05 10:12 | Outpatient (REF) | payer MEDICARE, SELFPAY | LOC: RAD 10:12 | PROVIDERS: ATTENDING PHYSICIAN Internal Medicine Rheumatology; FAMILY PHYSICIAN Nurse Practitioner | DX: M81.0 Age-related osteoporosis without current pathological fracture (principal); Z13.820 Encounter for screening for osteoporosis | CPT/HCPCS: 77080 ==

== ENCOUNTER → 2024-04-14 10:59 | Outpatient (REF) | payer MEDICARE, SELFPAY | LOC: RAD 10:59 | PROVIDERS: ATTENDING PHYSICIAN Internal Medicine Rheumatology; FAMILY PHYSICIAN Family Medicine | DX: M54.2 Cervicalgia (principal); M54.50 Low back pain, unspecified; Z13.820 Encounter for screening for osteoporosis | CPT/HCPCS: 72040; 72072; 72100 ==

== ENCOUNTER → 2024-05-07 12:29 | Outpatient (REF) | payer MEDICARE, SELFPAY | LOC: HWRAD 12:29 | PROVIDERS: ATTENDING PHYSICIAN Physician Assistant Medical | DX: R07.81 Pleurodynia (principal) | CPT/HCPCS: 71101 ==

== ENCOUNTER → 2024-05-20 08:58 | Outpatient (REF) | payer MEDICARE, SELFPAY | LOC: RAD 08:58 | PROVIDERS: ATTENDING PHYSICIAN Internal Medicine; FAMILY PHYSICIAN Nurse Practitioner | DX: R13.10 Dysphagia, unspecified (principal) | CPT/HCPCS: 74221 ==

== ENCOUNTER 2024-06-24 12:02 | Emergency (ER) | payer MEDICARE, SELFPAY ==
[2024-06-24 12:11] VITALS: BP 151/95
--- NOTE | 2024-06-24 15:35 | ED.GENMED ---
History of Present Illness
General
Chief Complaint: Headache
Source: patient
Exam Limitations: none
Time Seen by Provider: 06/24/24 14:53
Nursing documentation reviewed up to this point in time: agreed with
History of Present Illness
History of Present Illness:
Patient is an 83-year-old female with history hypertension, hyperlipidemia, migraine headaches presenting to the emergency department for evaluation of headache for 4 days. Patient reports throbbing sensation which has migrated around head with
intermittent sharp stabbing pains over the past 4 days. She reports mild associated nausea although denies any vomiting. No visual changes. No dizziness. No ataxia, dysarthria, or diplopia. Patient has been treating migraine with sumatriptan
and Tylenol/Aleve at home without much improvement. She spoke with her neurologist today who recommended that she come to the emergency department for a 'migraine cocktail '.
Patient denies any fever, chills, neck pain. No recent trauma.
She does state that this headache feels slightly different than prior migraines and has not responded to typical medications.
Of note�patient did have a biopsy for suspicion of temporal arteritis about 1 year ago which was negative. No current visual complaints.
Past History
Past History
ED Past Medical History: GERD, HTN, Hypercholesterolemia and Hypothyroidism
ED Past Surgical History: Appendectomy, Gynecological (hysterectomy), Orthopedic and Other (cosmetic)
Social History
Tobacco: Non-smoker
Alcohol: None
Drug: None
Review of Systems
Review of Systems
Allergies reviewed?: Yes
All Other Systems: ROS reviewed and negative except as documented in HPI and ROS
Phy Exam
Physical Exam
Physical Exam:
Vitals: Hypertensive. Otherwise vital signs stable. Afebrile
General: Patient is well appearing, no acute distress. Nontoxic appearing
Skin: Warm and dry, no rashes or lesions
Head: Normocephalic, atraumatic
Eyes: Sclera nonicteric. EOMs intact. No nystagmus.
Throat: Protecting airway
Neck: Normal ROM, no cervical spine tenderness, no meningismus
Cardiac: Regular rate and rhythm, no murmurs.
Pulm: Normal respiratory effort, no wheezes, rales, rhonchi heard on exam.
Abdomen: No abdominal tenderness.
Extremities: No evidence of cyanosis or edema
Neuro: AAOx3. Fluid speech and steady gait. No facial droop or asymmetry. Motor strength and sensation intact. No focal deficits
Psychiatric: Normal affect.
Course
Orders/Labs/Results
Orders:
Orders
06/24/24 15:25
0.9% Sodium Chloride 500 ml [Nss] 500 ml IV BOLUS
Diphenhydramine [Benadryl] 25 mg IV NOW STA
Metoclopramide [Reglan] 10 mg IV NOW STA
06/24/24 15:39
Complete Blood Count/With Diff Urgent
Comprehensive Metabolic Panel Urgent
Magnesium Urgent
TSH Reflex To Free T4 Urgent
Abnormal Lab Results
06/24/24
15:39
Alkaline Phosphatase 167 H U/L
(38-126)
06/24/24 15:39
06/24/24 15:39
Vital Signs
Initial and Last Documented VS:
Initial Vital Signs
Temp Pulse Resp BP Pulse Ox
98.1 F 72 16 151/95 95
06/24/24 12:11 06/24/24 12:11 06/24/24 12:11 06/24/24 12:11 06/24/24 12:11
Last Documented Vital Signs
Temp Pulse Resp BP Pulse Ox
98.1 F 58 18 175/89 97
06/24/24 12:11 06/24/24 17:09 06/24/24 17:09 06/24/24 17:09 06/24/24 17:09
MDM/Problems Addressed
Differential Diagnosis Includes:
Not limited to: Migraine headache, tension headache, cluster headache, sinusitis, viral illness, brain mass, intraparenchymal hemorrhage, etc.
MDM/Problems Addressed:
Patient is an 83 year-old female presenting with headache for four days not responding to typical medication at home. Patient denies any fever, neck pain, visual changes, ataxia, dysarthria. No other neurological symptoms. No history of recent
trauma. No anticoagulation. Vitals and exam as above. Patient ultimately well appearing, in no apparent distress. She has no focal neurologic deficits on exam. While she does a history of migraine � this headache seems different than prior. Will
check basic labs. Recommended CT scan given persistence of headache despite migraine therapy at home. Patient declines imaging at this time. Will, treat with migraine cocktail and reassess.
Update: Labs reviewed. Reassessed patient at bedside following migraine cocktail. She does report some improvement in symptoms, although still minimal headache remains. Again - recommended head CT to rule out other intracranial abnormality including
hemorrhage or mass. However� patient declines imaging as she states she is feeling better. She is aware of risks associated with not proceeding witth CT including but not limited to missing possible emergent diagnosis. Patient feels better and
would prefer discharge home at this point. Advised patient to follow closely with neurology/primary care. Very strict return precautions discussed. Patient ambulating steadily out of emergency department.
Chronic conditions affecting care:
Migraines, hypertension
Acute Exacerbation and/or Progression of Chronic Illness:
Acutely hypertensive
*Pulse Oximetry
Patient hypoxic: no
*EKG
Interpreted by ED Provider?: NA
*Primary Care Nurse Interpretation
Rate: Primary Care Nurse- N/A
*Critical Care Note
Total Time (30-74mins, 75-104mins- exclusive of procedures): Not Applicable
ED Attending Note
-
Portions of this chart may have been created with voice recognition software.� Occasional wrong word or��sound alike� substitutions may have occurred due to the inherent limitations of voice recognition software.
Discharge Plan
Departure
Patient Disposition: Home (Routine Discharge)
Date of Disposition: 06/24/24
Time of Disposition: 17:24
Patient with high blood pressure during this ER visit?: Yes
Discharge Problem:
Headache
Instructions: Headache, Adult (DC), BLOOD PRESSURE
Prescriptions:
No Action
losartan 50 mg Tablet
50 mg PO DAILY
meloxicam 15 mg Tablet
15 mg PO DAILY PRN (Reason: arthritis)
famotidine 40 mg Tablet
40 mg PO DAILY PRN (Reason: acid)
prednisone 20 mg Tablet
60 mg PO DAILY
amlodipine 2.5 mg Tablet
2.5 mg PO DAILY
pantoprazole 40 mg Tablet,Delayed Release (Dr/Ec)
40 mg PO DAILY PRN (Reason: acid)
aspirin 81 mg Tablet
81 mg PO DAILY
coenzyme Q10 [CoQ-10] 100 mg Capsule
200 mg PO DAILY
rosuvastatin [Crestor] 20 mg Tablet
20 mg PO HS
cholecalciferol (vitamin D3) [Vitamin D3] 50 mcg (2,000 unit) Tablet
50 mcg PO DAILY
Vitamin B12 1,000 mcg tablet
1 tab PO DAILY
levothyroxine capsule
50 mcg PO DAILY
Rx Instructions:
patient can not remember dosage
Citalopram capsule
20 mg PO DAILY
Rx Instructions:
patient unsure of dosage
oxycodone 5 mg tablet
5 mg PO Q8H PRN (Reason: moderate pain) Qty: 5 0RF
amoxicillin-pot clavulanate 875-125 mg tablet
1 tab PO BID 7 Days Qty: 14 0RF
ibuprofen 600 mg tablet
600 mg PO Q8H PRN (Reason: Pain) Qty: 14 0RF
oxycodone-acetaminophen [Percocet] 5-325 mg tablet
1 tab PO Q6HPRN PRN (Reason: pain) Qty: 8 0RF
Referrals:
Theresa Snider CRNP [Family Provider] - Follow up in 2-3 days
Activity Restrictions/Additional Instructions:
RETURN TO THE EMERGENCY DEPARTMENT WITH PERSISTENT HEADACHE, FEVER, NECK PAIN, DIZZINESS, DIFFICULTIES WITH BALANCE, WORSENING IN CURRENT SYMPTOMS, OR ANY OTHER CONCERNS
- As discussed that you were given IV Benadryl and Reglan, along with IV fluids for your headache today in the emergency department.
-It is important to stay very well-hydrated. You should continue to take Tylenol and/or Motrin as needed for headache. You can also use your triptans as prescribed by your neurologist.
- Your alkaline phosphatase level was mildly elevated in the emergency department. Please have this rechecked your primary care to ensure trending down.
- Follow-up with your primary care/neurologist for further evaluation/management to ensure symptoms are improving. If headache persists/with any worsening I highly for a CT scan of your head
Monitor your symptoms closely and return to the department with any acute worsening/new symptoms or any other concern
Interventions
Interventions:
*Risk Screen - Suicide Last Done: 06/24/24 12:11
*General Assessment Last Done: 06/24/24 12:11
*Neglect/Abuse Screening Last Done: 06/24/24 12:11
*ED- Fall Risk Assessment Last Done: 06/24/24 17:40
*ED COVID-19 Vaccine History Last Done: 06/24/24 12:11
*Nursing Disposition Last Done: 06/24/24 17:40
ED- Neurological Assessment Last Done: 06/24/24 14:46
Discharge Date and Time
Discharge Date/Time: 06/24/24 17:40
Print Language: SERBIAN
[2024-06-24] MEDS: REGLAN 10 MG IV (15:42)
[2024-06-24] MEDS: BENADRYL 25 MG IV (15:43)
[2024-06-24] MEDS: NSS 500 IV (15:44)
[2024-06-24 15:48] LABS: % Basophils 0.6 % (0-2); % Eosinophils 2.1 % (0-6); % Immature Granulocytes 0.3 % (0-0.5); % Lymphocytes 28.6 % (20.5-51.1); % Monocytes 5.9 % (1.7-9.3); % Neutrophils 62.5 % (42.2-75.2); Absolute Basophils 0.1 10^3/uL (0-0.2); Absolute Eosinophils 0.2 10^3/uL (0-0.7); Absolute Lymphocytes 2.7 10^3/uL (1.2-3.4); Absolute Monocytes 0.6 10^3/uL (0.1-0.6); Absolute Neutrophils 5.8 10^3/uL (1.4-6.5); Hematocrit 45.1 % (37.0-47.0); Mean Corp Hgb Conc. 33.3 g/dL (33.0-37.0); Mean Corpuscular Hgb 30.9 pg (27.0-31.0); Mean Corpuscular Volume 92.8 fL (81.0-99.0); Mean Platelet Volume 8.9 fL (7.4-10.4); Nucleated Red Blood Cells % 0 %; Platelet Count 252 10^3/uL (130-400); Red Blood Cell Count 4.86 10^6/uL (4.20-5.40); Red Cell Dist. Width 13.3 % (11.5-14.5); White Blood Cell Count 9.3 10^3/uL (4.8-10.8)
[2024-06-24 16:01] LABS: ALT (SGPT) 18 U/L (0-35); AST (SGOT) 27 U/L (14-36); Albumin 4.7 g/dl (3.5-5.0); Alkaline Phosphatase 167 U/L (38-126); Blood Urea Nitrogen 13 mg/dl (7-17); Calcium 9.2 mg/dl (8.4-10.2); Carbon Dioxide 25 mmol/L (22-30); Chloride 107 mmol/L (98-107); Glucose 90 mg/dl (70-99); Magnesium 2.2 mg/dl (1.6-2.3); Potassium 4.2 mmol/L (3.5-5.1); Sodium 142 mmol/L (135-145); Total Bilirubin 0.6 mg/dl (0.2-1.3); Total Protein 7.6 g/dl (6.3-8.2); eGFR > 60.00
[2024-06-24 16:30] LABS: TSH Reflex To Free T4 0.86 uIU/ml (0.47-4.68)
[2024-06-24 17:09] VITALS: BP 175/89
== END 2024-06-24 17:40 | disposition home or self-care (01) ==
LOC: EMR 12:02
PROVIDERS: Physician Assistant; EMERGENCY PHYSICIAN Emergency Medicine; FAMILY PHYSICIAN Nurse Practitioner
DX: R51.9 Headache, unspecified (principal); I10 Essential (primary) hypertension; E78.00 Pure hypercholesterolemia, unspecified; E03.9 Hypothyroidism, unspecified; K21.9 Gastro-esophageal reflux disease without esophagitis; K57.90 Diverticulosis of intestine, part unspecified, without perforation or abscess without bleeding; M19.90 Unspecified osteoarthritis, unspecified site; M81.0 Age-related osteoporosis without current pathological fracture; F41.9 Anxiety disorder, unspecified; F32.A Depression, unspecified; Z79.82 Long term (current) use of aspirin; Z86.16 Personal history of COVID-19; Z87.891 Personal history of nicotine dependence; Z87.01 Personal history of pneumonia (recurrent); Z88.1 Allergy status to other antibiotic agents
CPT/HCPCS: 99284; 96374; 96375; 96361; 80053; 83735; 84443; 85025

== ENCOUNTER → 2024-08-19 09:00 | Outpatient (REF) | payer MEDICARE, SELFPAY | LOC: RAD 09:00 | PROVIDERS: ATTENDING PHYSICIAN Nurse Practitioner | DX: M79.661 Pain in right lower leg (principal); I73.9 Peripheral vascular disease, unspecified | CPT/HCPCS: 93922; 93925 ==

== ENCOUNTER → 2024-10-12 07:28 | Outpatient (REF) | payer MEDICARE, SELFPAY | LOC: PAVMRI 07:28 | PROVIDERS: ATTENDING PHYSICIAN Student in an Organized Health Care Education/Training Program; FAMILY PHYSICIAN Nurse Practitioner | DX: G44.85 Primary stabbing headache (principal) | CPT/HCPCS: 70544; 70547; 70551 ==

== ENCOUNTER → 2024-11-06 12:51 | Outpatient (REF) | payer MEDICARE, SELFPAY | LOC: RAD 12:51 | PROVIDERS: ATTENDING PHYSICIAN Student in an Organized Health Care Education/Training Program | DX: Z01.818 Encounter for other preprocedural examination (principal) | CPT/HCPCS: 71046 ==

== ENCOUNTER → 2024-12-06 09:10 | Outpatient (REF) | payer MEDICARE, SELFPAY | LOC: RAD 09:10 | PROVIDERS: ATTENDING PHYSICIAN Physician Assistant Medical | DX: R50.9 Fever, unspecified (principal); R11.0 Nausea; R53.83 Other fatigue; R05.9 Cough, unspecified; R53.1 Weakness | CPT/HCPCS: 71046 ==

== ENCOUNTER 2024-12-18 10:49 | Emergency (ER) | payer MEDICARE, SELFPAY ==
[2024-12-18 10:58] VITALS: BP 119/67
--- NOTE | 2024-12-18 11:44 | ED.GENMED ---
History of Present Illness
General
Chief Complaint: Dizziness
Source: patient
Exam Limitations: none
Time Seen by Provider: 12/18/24 11:12
Nursing documentation reviewed up to this point in time: agreed with
History of Present Illness
History of Present Illness:
Patient status post right femoral artery angioplasty procedure at [facility] 1 month ago, started on Plavix afterwards, presents to ED secondary to persistent 'dizziness', since returning home the following day from the procedure. Patient
denies a room spinning sensation. Denies loss of sensation or weakness. Denies difficulty with ambulation. Denies loss of appetite. Denies hearing loss. Denies difficulty with speech or swallowing. Patient does report intermittent headache,
which she does experience secondary to chronic migraine headache. Since onset of symptoms, patient has been evaluated by her primary care physician and she has also spoken with her neurologist in [place]. Secondary to concern for potential
stroke, MRI brain without contrast has been ordered for next week. However, secondary to duration of symptoms, patient felt as though she needed to obtain study earlier. She was told by her primary care physician to go to ED so that she could get
MRI sooner.
Past History
Past History
ED Past Medical History: GERD, HTN, Hypercholesterolemia and Hypothyroidism
ED Past Surgical History: Appendectomy, Gynecological (hysterectomy), Orthopedic and Other (cosmetic)
Social History
Tobacco: Non-smoker
Alcohol: None
Drug: None
Review of Systems
Review of Systems
Allergies reviewed?: Yes
All Other Systems: ROS reviewed and negative except as documented in HPI and ROS
Constitutional: Reports no symptoms
EENT: Reports no symptoms
Respiratory: Reports no symptoms
Cardiac: Reports no symptoms; Denies chest pain, diaphoresis, palpitations or syncope
ABD/GI: Reports no symptoms; Denies nausea or vomiting
Musculoskeletal: Reports no symptoms
Skin: Reports no symptoms
Neurological: Reports dizzy and headache; Denies weakness or numbness
Phy Exam
Physical Exam
Physical Exam:
Physical Exam
General: no apparent distress, not acutely ill. afebrile
Head: nc/at. eomi
Neck: supple. no meningeal signs. normal posterior pharynx. no carotid bruit noted
Heart: s1/s2 regular rate and rhythm
Lungs: no acute respiratory distress. clear bilaterally
Abdomen: normal bowel sounds. not tender.
Neuro: alert and oriented x 3. no focal sensory/motor deficit. normal speech. normal gait
Skin: no rash
Psychiatric: well kept. interactive and cooperative
Extremities: no edema. no calf tenderness. negative
Course
Orders/Labs/Results
Orders:
Orders
12/18/24 11:43
Physical Therapy Consult [Pt Eval And Treat] Urgent
Treatment: vertigo
Activity Level: As Tolerated
12/18/24 11:56
Orthostatic VS- Treatment ONCE
Vital Signs
Initial and Last Documented VS:
Initial Vital Signs
Temp Pulse Resp BP Pulse Ox
98.2 F 63 16 119/67 98
12/18/24 10:58 12/18/24 10:58 12/18/24 10:58 12/18/24 10:58 12/18/24 10:58
Last Documented Vital Signs
Temp Pulse Resp BP Pulse Ox
98.2 F 59 20 122/62 97
12/18/24 10:58 12/18/24 13:00 12/18/24 13:00 12/18/24 13:00 12/18/24 13:00
MDM/Problems Addressed
MDM/Problems Addressed:
Patient evaluated in ED by physical therapy - outpatient treatment plan discussed and provided. Patient otherwise remains afebrile, hemodynamically stable, and without any focal neurological deficit, during extended course of observation.
Patient's presenting symptoms likely multifactorial, including underlying cervical disease, migraine headache, dehydration, recent hospitalization, along with potential viral component. Fortunately, patient without any acute distress nor any
neurological deficit noted on exam, that warrants emergent studies, i.e. MRI brain. I believe is appropriate for patient to receive already scheduled MRI brain. However, did inform patient to contact scheduling, to see if her sleep study can be
performed earlier. As patient also had recent complete blood work, without any acute abnormal findings, no indication for any blood work at this time. Patient otherwise appears comfortable, and is without any distress, at time of discharge.
*Pulse Oximetry
SaO2: 98
Oxygen Mode of Delivery: Room air
Patient hypoxic: no
*Critical Care Note
Total Time (30-74mins, 75-104mins- exclusive of procedures): Not Applicable
ED Attending Note
-
Portions of this chart may have been created with voice recognition software.� Occasional wrong word or��sound alike� substitutions may have occurred due to the inherent limitations of voice recognition software.
Discharge Plan
Departure
Patient Disposition: Home (Routine Discharge)
Date of Disposition: 12/18/24
Time of Disposition: 13:54
Patient with high blood pressure during this ER visit?: Yes
Condition: Good
Discharge Problem:
Dizziness
Instructions: Dizziness
Prescriptions:
No Action
losartan 50 mg Tablet
50 mg PO DAILY
meloxicam 15 mg Tablet
15 mg PO DAILY PRN (Reason: arthritis)
famotidine 40 mg Tablet
40 mg PO DAILY PRN (Reason: acid)
prednisone 20 mg Tablet
60 mg PO DAILY
amlodipine 2.5 mg Tablet
2.5 mg PO DAILY
pantoprazole 40 mg Tablet,Delayed Release (Dr/Ec)
40 mg PO DAILY PRN (Reason: acid)
aspirin 81 mg Tablet
81 mg PO DAILY
coenzyme Q10 [CoQ-10] 100 mg Capsule
200 mg PO DAILY
rosuvastatin [Crestor] 20 mg Tablet
20 mg PO HS
cholecalciferol (vitamin D3) [Vitamin D3] 50 mcg (2,000 unit) Tablet
50 mcg PO DAILY
Vitamin B12 1,000 mcg tablet
1 tab PO DAILY
levothyroxine capsule
50 mcg PO DAILY
Rx Instructions:
patient can not remember dosage
Citalopram capsule
20 mg PO DAILY
Rx Instructions:
patient unsure of dosage
oxycodone 5 mg tablet
5 mg PO Q8H PRN (Reason: moderate pain) Qty: 5 0RF
amoxicillin-pot clavulanate 875-125 mg tablet
1 tab PO BID 7 Days Qty: 14 0RF
ibuprofen 600 mg tablet
600 mg PO Q8H PRN (Reason: Pain) Qty: 14 0RF
oxycodone-acetaminophen [Percocet] 5-325 mg tablet
1 tab PO Q6HPRN PRN (Reason: pain) Qty: 8 0RF
Referrals:
Michael Gonzalez MD [Family Provider, Family Practice]
Activity Restrictions/Additional Instructions:
As discussed, please follow-up with your primary care physician and/or neurologist for continual evaluation and treatment, including already scheduled outpatient MRI brain. In addition, certainly recommend following up with outpatient rehab
facility, to receive treatment for potential cervicogenic headache.
Interventions
Interventions:
*Risk Screen - Suicide Last Done: 12/18/24 10:58
*General Assessment Last Done: 12/18/24 11:40
*Neglect/Abuse Screening Last Done: 12/18/24 10:58
*ED COVID-19 Vaccine History Last Done: 12/18/24 11:40
*ED Influenza Vaccine History Last Done: 12/18/24 11:40
*Nursing Disposition Last Done: 12/18/24 13:59
ED- Neurological Assessment Last Done: 12/18/24 11:40
ED Swallowing Screen Last Done: 12/18/24 12:00
Discharge Date and Time
Discharge Date/Time: 12/18/24 14:00
Print Language: POLISH
[2024-12-18 11:55] VITALS: BP 113/76; BP 120/70; BP 126/71; PULSE 52; PULSE 54; PULSE 56
[2024-12-18 13:00] VITALS: BP 122/62
== END 2024-12-18 14:00 | disposition home or self-care (01) ==
LOC: EMR 10:49
PROVIDERS: EMERGENCY PHYSICIAN Emergency Medicine; FAMILY PHYSICIAN Family Medicine
DX: R42 Dizziness and giddiness (principal); E03.9 Hypothyroidism, unspecified; E78.00 Pure hypercholesterolemia, unspecified; I10 Essential (primary) hypertension; Z90.49 Acquired absence of other specified parts of digestive tract; Z90.710 Acquired absence of both cervix and uterus; Z98.890 Other specified postprocedural states; Z79.02 Long term (current) use of antithrombotics/antiplatelets
CPT/HCPCS: 99282

== ENCOUNTER → 2024-12-24 16:10 | Outpatient (REF) | payer MEDICARE, SELFPAY | LOC: PAVMRI 16:10 | PROVIDERS: ATTENDING PHYSICIAN Student in an Organized Health Care Education/Training Program; FAMILY PHYSICIAN Student in an Organized Health Care Education/Training Program | DX: G44.85 Primary stabbing headache (principal) | CPT/HCPCS: 70544; 70547; 70551 ==

== ENCOUNTER 2024-12-30 10:48 | Emergency (ER) | payer MEDICARE, SELFPAY ==
[2024-12-30 10:49] VITALS: BP 149/80
--- NOTE | 2024-12-30 12:33 | ED.GENMED ---
History of Present Illness
General
Chief Complaint: Headache
Source: patient
Exam Limitations: none
Time Seen by Provider: 12/30/24 12:14
History of Present Illness
History of Present Illness:
84-year-old female notes persistent migraine to the front of her head for the past several weeks. She had an angioplasty procedure of her leg and since then has been having headaches and dizziness. She was seen here about 2 weeks ago for similar
symptoms but her dizziness was more prominent then. In the interim she has had a brain MRI as well as an MRA of the head and neck both of which showed no significant abnormalities. She has been in contact with her neurologist who advised that she
try triptan of which she did this morning however this did not help. She denies associated fever neck pain or rash. This feels like migraine she has had in the past. No other complaints at this time. The headache has been gradual in onset
Past History
Past History
ED Past Medical History: GERD, HTN, Hypercholesterolemia and Hypothyroidism
ED Past Surgical History: Appendectomy, Gynecological (hysterectomy), Orthopedic and Other (cosmetic)
Social History
Tobacco: Non-smoker
Alcohol: None
Drug: None
Phy Exam
Physical Exam
Physical Exam:
General: Well-appearing female no acute respiratory distress
HEENT: Normal cephalic atraumatic
Heart: Regular rate and rhythm
Lungs: Clear no wheeze
Neurologic exam: Alert and oriented x 3 pupils equal round reactive to light finger-nose [id number] intact no drift on exam
Conversing appropriately no meningeal signs
Extremities: No cyanosis or edema
Course
Orders/Labs/Results
Orders:
Orders
12/30/24 12:31
0.9% Sodium Chloride 500 ml [Nss] 500 ml IV BOLUS
Diphenhydramine [Benadryl] 25 mg IV NOW STA
Metoclopramide [Reglan] 10 mg IV NOW STA
Vital Signs
Initial and Last Documented VS:
Initial Vital Signs
Temp Pulse Resp BP Pulse Ox
98.1 F 59 20 149/80 95
12/30/24 10:49 12/30/24 10:49 12/30/24 10:49 12/30/24 10:49 12/30/24 10:49
Last Documented Vital Signs
Temp Pulse Resp BP Pulse Ox
98.1 F 69 16 135/66 97
12/30/24 10:49 12/30/24 14:11 12/30/24 14:11 12/30/24 14:11 12/30/24 14:11
MDM/Problems Addressed
Differential Diagnosis Includes:
Patient with ongoing headache feels like migraine she has had in the past. She recently had an MRI and MRA of the head and neck. I have reviewed the studies showed no significant abnormalities. No fever to suggest infectious source she is not
meningitic on exam. Will treat as migraine. Try Reglan and Benadryl with fluids
*Pulse Oximetry
SaO2: 95
Oxygen Mode of Delivery: Room air
Patient hypoxic: no
*Critical Care Note
Total Time (30-74mins, 75-104mins- exclusive of procedures): Not Applicable
Update Note
Update Note:
Patient feeling much better after treatment here. Ready to go home. Suspect migraine. Stable for discharge with continued follow-up with her neurology team
ED Attending Note
-
Portions of this chart may have been created with voice recognition software.� Occasional wrong word or��sound alike� substitutions may have occurred due to the inherent limitations of voice recognition software.
Discharge Plan
Departure
Patient Disposition: Home (Routine Discharge)
Date of Disposition: 12/30/24
Time of Disposition: 14:37
Patient with high blood pressure during this ER visit?: No
Discharge Problem:
Headache
Instructions: Migraines (DC)
Prescriptions:
No Action
losartan 50 mg Tablet
50 mg PO DAILY
meloxicam 15 mg Tablet
15 mg PO DAILY PRN (Reason: arthritis)
famotidine 40 mg Tablet
40 mg PO DAILY PRN (Reason: acid)
prednisone 20 mg Tablet
60 mg PO DAILY
amlodipine 2.5 mg Tablet
2.5 mg PO DAILY
pantoprazole 40 mg Tablet,Delayed Release (Dr/Ec)
40 mg PO DAILY PRN (Reason: acid)
aspirin 81 mg Tablet
81 mg PO DAILY
coenzyme Q10 [CoQ-10] 100 mg Capsule
200 mg PO DAILY
rosuvastatin [Crestor] 20 mg Tablet
20 mg PO HS
cholecalciferol (vitamin D3) [Vitamin D3] 50 mcg (2,000 unit) Tablet
50 mcg PO DAILY
Vitamin B12 1,000 mcg tablet
1 tab PO DAILY
levothyroxine capsule
50 mcg PO DAILY
Rx Instructions:
patient can not remember dosage
Citalopram capsule
20 mg PO DAILY
Rx Instructions:
patient unsure of dosage
oxycodone 5 mg tablet
5 mg PO Q8H PRN (Reason: moderate pain) Qty: 5 0RF
amoxicillin-pot clavulanate 875-125 mg tablet
1 tab PO BID 7 Days Qty: 14 0RF
ibuprofen 600 mg tablet
600 mg PO Q8H PRN (Reason: Pain) Qty: 14 0RF
oxycodone-acetaminophen [Percocet] 5-325 mg tablet
1 tab PO Q6HPRN PRN (Reason: pain) Qty: 8 0RF
Referrals:
Malik Witt MD [Family Provider, Family Practice]
Activity Restrictions/Additional Instructions:
Continue with your triptan if needed for headache. Restart gabapentin 100 mg daily and transition to twice a day. Follow-up with your neurology team
Interventions
Interventions:
*Risk Screen - Suicide Last Done: 12/30/24 10:49
*General Assessment Last Done: 12/30/24 10:49
*Neglect/Abuse Screening Last Done: 12/30/24 10:49
*ED- Fall Risk Assessment Last Done: 12/30/24 11:09
*ED COVID-19 Vaccine History Last Done: 12/30/24 11:09
*ED Influenza Vaccine History Last Done: 12/30/24 11:09
ED- Neurological Assessment Last Done: 12/30/24 11:09
Discharge Date and Time
Print Language: SAMI
[2024-12-30] MEDS: NSS 500 IV (12:44)
[2024-12-30] MEDS: BENADRYL 25 MG IV (12:46)
[2024-12-30] MEDS: REGLAN 10 MG IV (12:46)
[2024-12-30 14:11] VITALS: BP 135/66
== END 2024-12-30 15:01 | disposition home or self-care (01) ==
LOC: EMR 10:48
PROVIDERS: EMERGENCY PHYSICIAN Emergency Medicine; FAMILY PHYSICIAN Student in an Organized Health Care Education/Training Program
DX: R51.9 Headache, unspecified (principal); K21.9 Gastro-esophageal reflux disease without esophagitis; I10 Essential (primary) hypertension; E78.00 Pure hypercholesterolemia, unspecified; E03.9 Hypothyroidism, unspecified; Z90.49 Acquired absence of other specified parts of digestive tract; Z90.710 Acquired absence of both cervix and uterus
CPT/HCPCS: 99282; 96374; 96375; 96361

== ENCOUNTER → 2025-01-20 10:08 | Outpatient (REF) | payer MEDICARE, SELFPAY | LOC: RAD 10:08 | PROVIDERS: ATTENDING PHYSICIAN Student in an Organized Health Care Education/Training Program | DX: R42 Dizziness and giddiness (principal) | CPT/HCPCS: 93880 ==

== ENCOUNTER → 2025-02-10 12:54 | Outpatient (REF) | payer MEDICARE, SELFPAY | LOC: HWRAD 12:54 | PROVIDERS: ATTENDING PHYSICIAN Student in an Organized Health Care Education/Training Program; FAMILY PHYSICIAN Student in an Organized Health Care Education/Training Program | DX: R51.9 Headache, unspecified (principal) | CPT/HCPCS: 70486 ==

== ENCOUNTER 2025-03-03 10:25 | Emergency (ER) | payer MEDICARE, SELFPAY ==
[2025-03-03 10:31] VITALS: BP 118/85
--- NOTE | 2025-03-03 11:50 | ED.GENMED ---
History of Present Illness
General
Chief Complaint: Musculo-Skeletal Complaint
Source: patient
Exam Limitations: none
Time Seen by Provider: 03/03/25 11:44
Nursing documentation reviewed up to this point in time: agreed with
History of Present Illness
History of Present Illness:
Patient is an 84-year-old female with history of hypertension, hyperlipidemia who presents to the emergency department with atraumatic left hand pain. Patient states that she noticed pain near the base of her left thumb 2 days ago which is
persisted. She describes pain that radiates slightly down into her left wrist and on both the dorsal and palmar surface of her left thumb. Pain is significantly exacerbated movement of thumb. She denies any pain with range of motion of wrist.
She has not noticed any improvement with Tylenol or Motrin.
She denies any known trauma or injury. She denies any fever, chills. No numbness/tingling affected digits.
Patient states she does have a history of suspected gout in her great toe a few years ago. She also has a history of osteoarthritis.
Patient is not on any oral anticoagulation.
Past History
Past History
ED Past Medical History: GERD, HTN, Hypercholesterolemia and Hypothyroidism
ED Past Surgical History: Appendectomy, Gynecological (hysterectomy), Orthopedic and Other (cosmetic)
Social History
Tobacco: Non-smoker
Alcohol: None
Drug: None
Review of Systems
Review of Systems
Allergies reviewed?: Yes
All Other Systems: ROS reviewed and negative except as documented in HPI and ROS
Phy Exam
Physical Exam
Physical Exam:
Vitals: Patient's vital signs are stable. Afebrile
General: Patient is well appearing, no acute distress
Skin: Warm and dry, no rashes or lesions
Head: Normocephalic, atraumatic
Throat: Protecting airway
Neck: Normal ROM, no cervical spine tenderness
Cardiac: Regular rate
Pulm: No apparent respiratory distress
Abdomen: Nondistended
Extremities: Swelling and tenderness of left thumb at MCP joint and thenar eminence. Limited range of motion in left thumb secondary to pain. No significant erythema or warmth of left hand or MCP joint. She is able to flex/extend right wrist. 2+
palpable left radial pulse with normal capillary refill.
Neuro: Grossly intact
Psychiatric: Normal affect.
Course
Orders/Labs/Results
Orders:
Orders
03/03/25 10:33
Hand, Left 3 View [CR Hand - Left Min 3 Views] Urgent
Comment:
Reason For Exam: pain and swelling
03/03/25 11:50
Ibuprofen [Motrin] 600 mg PO NOW STA
03/03/25 12:48
Splints/Slings/Crut- Treatment ONCE
Location: Left
Type of Splint: Thimb Spica
03/03/25 12:49
Prednisone [Deltasone] 40 mg PO NOW STA
Vital Signs
Initial and Last Documented VS:
Initial Vital Signs
Temp Pulse Resp BP Pulse Ox
98.2 F 76 20 118/85 97
03/03/25 10:31 03/03/25 10:31 03/03/25 10:31 03/03/25 10:31 03/03/25 10:31
Last Documented Vital Signs
Temp Pulse Resp BP Pulse Ox
97.6 F 68 20 138/78 95
03/03/25 13:11 03/03/25 13:11 03/03/25 13:11 03/03/25 13:11 03/03/25 13:11
MDM/Problems Addressed
Differential Diagnosis Includes:
Not limited to: Osteoarthritis, gouty arthritis, de Quervain's tenosynovitis, hand fracture, thumb sprain, etc.
MDM/Problems Addressed:
84-year-old female with atraumatic left thumb pain localized around MCP. Denies fevers, infectious symptoms, or trauma. History of osteoarthritis and gout. Vitals stable. Exam notable for edema and tenderness at the left thumb MCP and thenar
eminence with limited ROM due to pain. Wrist ROM preserved. No erythema, warmth, or skin changes. Neurovascularly intact.
X-ray of the left hand showed degenerative changes at the left MCP.
Given lack of trauma and absence of fever or overlying skin changes, suspicion for acute fracture or septic arthritis is low.
Ultimately, favor osteoarthritis flare versus inflammatory arthritis, including gout.
Patient placed in a thumb spica splint for comfort. Discussed supportive care at home including pain control. Will trial short course steroid burst to treat potential gout flare given hx. . Discharged home with outpatient orthopedic follow-up and
strict return precautions. Patient comfortable with plan.
Chronic conditions affecting care:
N/A
Acute Exacerbation and/or Progression of Chronic Illness:
N/A
*Radiology
Radiology exam reviewed: radiology read reviewed
*Pulse Oximetry
SaO2: 97
Oxygen Mode of Delivery: Room air
Patient hypoxic: no
*EKG
Interpreted by ED Provider?: NA
*Utilities Equipment Repairer Interpretation
Rate: Utilities Equipment Repairer- N/A
*Critical Care Note
Total Time (30-74mins, 75-104mins- exclusive of procedures): Not Applicable
ED Attending Note
-
Portions of this chart may have been created with voice recognition software.� Occasional wrong word or��sound alike� substitutions may have occurred due to the inherent limitations of voice recognition software.
Discharge Plan
Departure
Patient Disposition: Home (Routine Discharge)
Date of Disposition: 03/03/25
Time of Disposition: 12:50
Patient with high blood pressure during this ER visit?: No
Condition: Good
Discharge Problem:
Pain of left thumb
Instructions: Osteoarthritis
Prescriptions:
New
prednisone 20 mg tablet
40 mg PO DAILY 4 Days Qty: 8 0RF
No Action
losartan 50 mg Tablet
50 mg PO DAILY
meloxicam 15 mg Tablet
15 mg PO DAILY PRN (Reason: arthritis)
famotidine 40 mg Tablet
40 mg PO DAILY PRN (Reason: acid)
prednisone 20 mg Tablet
60 mg PO DAILY
amlodipine 2.5 mg Tablet
2.5 mg PO DAILY
pantoprazole 40 mg Tablet,Delayed Release (Dr/Ec)
40 mg PO DAILY PRN (Reason: acid)
aspirin 81 mg Tablet
81 mg PO DAILY
coenzyme Q10 [CoQ-10] 100 mg Capsule
200 mg PO DAILY
rosuvastatin [Crestor] 20 mg Tablet
20 mg PO HS
cholecalciferol (vitamin D3) [Vitamin D3] 50 mcg (2,000 unit) Tablet
50 mcg PO DAILY
Vitamin B12 1,000 mcg tablet
1 tab PO DAILY
levothyroxine capsule
50 mcg PO DAILY
Rx Instructions:
patient can not remember dosage
Citalopram capsule
20 mg PO DAILY
Rx Instructions:
patient unsure of dosage
oxycodone 5 mg tablet
5 mg PO Q8H PRN (Reason: moderate pain) Qty: 5 0RF
amoxicillin-pot clavulanate 875-125 mg tablet
1 tab PO BID 7 Days Qty: 14 0RF
ibuprofen 600 mg tablet
600 mg PO Q8H PRN (Reason: Pain) Qty: 14 0RF
oxycodone-acetaminophen [Percocet] 5-325 mg tablet
1 tab PO Q6HPRN PRN (Reason: pain) Qty: 8 0RF
Referrals:
Malik Witt MD [Family Provider, Family Practice]
Ganga Lawson MD [Active, Orthopedics]
Misael Rausch MD [Active, Orthopedics] - Next open appointment
Activity Restrictions/Additional Instructions:
RETURN TO THE EMERGENCY DEPARTMENT WITH ANY INTRACTABLE PAIN, WORSENING SWELLING OR REDNESS OF THE THUMB, FEVERS OR ANY OTHER CONCERNS
- Your x-ray showed degenerative changes. I suspect your symptoms are likely secondary to osteoarthritis. There may be a small fracture however I find this is less likely given no history of trauma.
- A prescription for prednisone has been sent to your pharmacy to can take for the next 4 days. Continue to ice, elevate and wear splint until you are seen by orthopedics. You can take Tylenol and/or Motrin as needed for pain.
- The contact information for orthopedics has been provided for you above. Please contact them today for the next available appointment
Monitor your symptoms closely and return to the emergency department with any acute worsening/new symptoms or any evidence of infection
Interventions
Interventions:
*Neglect/Abuse Screening Last Done: 03/03/25 10:31
*Risk Screen - Suicide (C-SSRS) Last Done: 03/03/25 10:31
*Nursing Disposition Last Done: 03/03/25 13:04
ED-Musculoskeletal Assessment Last Done: 03/03/25 11:58
Discharge Date and Time
Discharge Date/Time: 03/03/25 13:19
Print Language: BULGARIAN
[2025-03-03] MEDS: MOTRIN 600 MG PO (11:54)
[2025-03-03] MEDS: DELTASONE 40 MG PO (13:03)
[2025-03-03 13:11] VITALS: BP 138/78
== END 2025-03-03 13:19 | disposition home or self-care (01) ==
LOC: EMR 10:25
PROVIDERS: EMERGENCY PHYSICIAN Emergency Medicine; FAMILY PHYSICIAN Student in an Organized Health Care Education/Training Program
DX: M79.645 Pain in left finger(s) (principal); M10.00 Idiopathic gout, unspecified site; E78.00 Pure hypercholesterolemia, unspecified; I10 Essential (primary) hypertension; E03.9 Hypothyroidism, unspecified
CPT/HCPCS: 99283; 73130